=== PATIENT | female | born 1985 | race Hispanic/Latino ===

== ENCOUNTER 2019-08-04 07:54 | Day surgery (SDC) | payer BC ==
[2019-08-02 12:04] VITALS: BP 139/76
[2019-08-02 12:13] LABS: BASOPHILS % (AUTO) 0.8 % (0.0-5.0); EOSINOPHILS % (AUTO) 2.9 % (0.0-8.0); HEMATOCRIT 35.2 % (36-48); LYMPHOCYTES % (AUTO) 28.4 % (21.0-51.0); MEAN CORPUSCULAR HEMOGLOBIN 29.2 pg (27.0-33.0); MEAN CORPUSCULAR HGB CONC 33.2 g/dL (32.0-36.0); MEAN CORPUSCULAR VOLUME 87.9 fL (79-99); MONOCYTES % (AUTO) 5.3 % (3.0-13.0); NEUTROPHILS % (AUTO) 62.6 % (40.0-77.0); PLATELET COUNT (AUTO) 340 K/uL (130-400); RED CELL DISTRIBUTION WIDTH 13.2 % (11.0-15.5); WHITE BLOOD COUNT (AUTO) 7.3 K/uL (4.8-10.8)
[2019-08-04] VITALS (18 sets, daily range): BP systolic 110–144; BP diastolic 61–81
[~2019-08-04] VITALS: Ht 161.3 cm; Wt 104.5 kg
[~2019-08-04 07:54] MED LIST: CALDOLOR 800MG+NS 250ML 250 ML IV SCH; CEFAZOLIN 3GM /D5W 100ML 100 ML IV SCH; DROS1TAB PO; LACTATED RINGERS 1000ML 1,000 ML IV SCH
[2019-08-04] MEDS ORDERED: CALDOLOR 800MG+NS 250ML 250 ML IV ONE (08:53)
[2019-08-04] MEDS: CEFAZOLIN SODIUM 1 GM VIAL ONE ×2 (09:16→11:00)
[2019-08-04] MEDS ORDERED: GLYCOPYRROLATE 1 MG/5 ML SYRINGE ONE (11:06)
[2019-08-04] MEDS ORDERED: ROCURONIUM 10MG/1ML SYR 10 MG/ML ML ONE (11:06)
[2019-08-04] MEDS ORDERED: DEXAMETHASONE SOD PHOSPHATE 10MG/ML 1ML VIAL ONE (11:06)
[2019-08-04] MEDS ORDERED: MIDAZOLAM HCL 1 MG/ML 2ML VIAL ONE (11:06)
[2019-08-04] MEDS ORDERED: SUCCINYLCHOLINE 200MG/10ML SYR ONE ×2 (11:06→11:23)
[2019-08-04] MEDS ORDERED: LIDOCAINE PF 2% 5ML ABBOJECT ONE (11:06)
[2019-08-04] MEDS ORDERED: ONDANSETRON HCL 4 MG/2 ML VIAL ONE (11:06)
[2019-08-04] MEDS ORDERED: PROPOFOL 10 MG/ML 20ML VIAL IV ONE ×2 (11:06→12:19)
[2019-08-04] MEDS ORDERED: NEOSTIGMINE 5MG/5ML SYR IV ONE (11:06)
[2019-08-04] MEDS ORDERED: FENTANYL CITRATE PF 50 MCG/1 ML 2ML VIAL ONE ×2 (11:07→12:35)
[2019-08-04] MEDS ORDERED: MEPERIDINE-PF 25 MG/ML SYG ONE (11:46)
== END 2019-08-04 14:54 | disposition home or self-care (01) ==
LOC: DAH 07:54
PROVIDERS: ATTEND Obstetrics & Gynecology
DX: N92.1 Excessive and frequent menstruation with irregular cycle (principal); D25.0 Submucous leiomyoma of uterus; J45.909 Unspecified asthma, uncomplicated; Z79.899 Other long term (current) drug therapy; Z82.49 Family history of ischemic heart disease and other diseases of the circulatory system; Z83.3 Family history of diabetes mellitus; Z82.5 Family history of asthma and other chronic lower respiratory diseases
CPT/HCPCS: 36415; 58561; 84703; 85025; 86850; 86900; 86901; 88305; A4215; A4221; A4222; A4223; A4351; A4355; A4663; A4930; A6260; J0330 ×2; J0690 ×2; J1100; J1741; J2001; J2175; J2250; J2405; J2704 ×2; J2710; J3010 ×2; J3490; J7030 ×2; J7120